=== PATIENT | female | born 1955 | race Caucasian/White ===

== ENCOUNTER 2016-09-24 19:07 | Emergency (ER) | payer OTHER ==
[2016-09-24 19:17] VITALS: TEMP 98.2; O2SAT 97
--- NOTE | 2016-09-24 19:28 | EDPHY ---
H & P Stated Complaint: c/o sob x 4 days after extensive physical activity Time Seen by Provider: 09/24/16 19:19 HPI/ROS: CHIEF COMPLAINT: Dyspnea HISTORY OF PRESENT ILLNESS: The patient is a 61-year-old female with a history only of hemochromatosis not on any medications comes to the emergency department her complaining mild dyspnea for the last 4 days. She states that it starts out mild morning and gradually increases throughout the day and then resolved at night while she is asleep. 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 She denies having any chest pain but does admit to having some chest tightness. She has no history of cardiac or pulmonary disease. No wheezing. No cough fevers or recent illness. Recent travel. No procedures. No hormones. No tobacco. No leg pain or swelling. She has not had a fever. she states that today she also noticed some tingling in her left bicep and her right scalp. REVIEW OF SYSTEMS: Constitutional: denies: chills, fever, recent illness, recent injury EENTM: denies: blurred vision, double vision, nose congestion Respiratory: See HPI Cardiac: denies: chest pain, irregular heart rate, lightheadedness, palpitations Gastrointestinal/Abdominal: denies: abdominal pain, diarrhea, nausea, vomiting, blood streaked stools Genitourinary: denies: dysuria, frequency, hematuria, pain Musculoskeletal: denies: joint pain, muscle pain Skin: denies: lesions, rash, jaundice, bruising Neurological: denies: headache, numbness, paresthesia, tingling, dizziness, weakness Hematologic/Lymphatic: denies: blood clots, easy bleeding, easy bruising Immunologic/allergic: denies: HIV/AIDS, transplant EXAM: GENERAL: Well-appearing, well-nourished and in no acute distress. HEAD: Atraumatic, normocephalic. EYES: Pupils equal round and reactive to light, extraocular movements intact, sclera anicteric, conjunctiva are normal. ENT: TMs normal, nares patent, oropharynx clear without exudates. Moist mucous membranes. NECK: Normal range of motion, supple without lymphadenopathy or JVD. LUNGS: Breath sounds clear to auscultation bilaterally and equal. No wheezes rales or rhonchi. HEART: Regular rate and rhythm without murmurs, rubs or gallops. ABDOMEN: Soft, nontender, normoactive bowel sounds. No guarding, no rebound. No masses appreciated. BACK: No CVA tenderness, no spinal tenderness, step-offs or deformities EXTREMITIES: Normal range of motion, no pitting or edema. No clubbing or cyanosis. NEUROLOGICAL: Cranial nerves II through XII grossly intact. Normal speech, normal gait. 5/5 strength, normal movement in all extremities, normal sensation PSYCH: Normal mood, normal affect. SKIN: Warm, dry, normal turgor, no visible rashes or lesions. Source: Patient Exam Limitations: No limitations - Personal History Tetanus Vaccine Date: 2014 - Medical/Surgical History Hx Asthma: No Hx Chronic Respiratory Disease: No Hx Diabetes: No Hx Cardiac Disease: No Hx Renal Disease: No Hx Cirrhosis: No Hx Alcoholism: No Hx HIV/AIDS: No Hx Splenectomy or Spleen Trauma: No Other PMH: GERD, L4 discectomy, L eye hemorrhage - Family History Significant Family History: No pertinent family hx - Social History Smoking Status: Never smoked Alcohol Use: Sober Drug Use: None Constitutional: Initial Vital Signs Temperature (C) 36.8 C 09/24/16 19:11 Heart Rate 81 09/24/16 19:11 Respiratory Rate 16 09/24/16 19:11 Blood Pressure 176/90 H 09/24/16 19:11 O2 Sat (%) 97 09/24/16 19:11 O2 Delivery Mode Room Air Allergies/Adverse Reactions: No Known Allergies Allergy (Verified 09/24/16 19:14) Home Medications: Medication Instructions Recorded Acetaminophen ['s 1,000 mg PO PRN PRN 04/13/11 Acetaminophen] Ranitidine HCl [Zantac 15 MG/ML 150 mg PO PRN 04/13/11 Oral Liquid (RX)] Medical Decision Making - Diagnostics EKG Interpretation: An EKG obtained and was read and documented in trace view. Please see trace view for full reading and report. Sinus rhythm, no acute ischemic changes Imaging: X-ray: chest x-ray was obtained. I viewed the images myself on the PACS system. My interpretation of the images is: Bronchitis. The radiologist interpretation is bronchitis. ED Course/Re-evaluation: we discussed the patient's x-ray and lab results. She is relieved. I will treat her for viral bronchitis. This does fit with her symptoms. Try giving her a breathing treatment to see if this helps. She states that this felt much better. I will give her a dose of steroids and an inhaler to use symptomatically. She is grateful and declines any further workup or testing at this time. Differential Diagnosis: Partial list of the Differential diagnosis considered include but were not limited to; bronchitis, acute coronary disease, PE and although unlikely based on the history and physical exam, I also considered arrhythmia, pneumothorax, trauma, pneumonia. I discussed these differential diagnoses and the plan with the patient as well as the usual and expected course. The patient understands that the diagnosis is provisional and that in medicine we are not always correct and that further workup is often warranted. Usual and customary warnings were given. All of the patient's questions were answered. The patient was instructed to return to the emergency department should the symptoms at all worsen or return, otherwise to followup with the physician as we discussed. - Data Points Laboratory Results: Laboratory Results 09/24/16 19:34 09/24/16 19:34 Medications Given: Discontinued Medications Albuterol Sulfate (Proventil Inh Prepack) 1 mdi TAKEHOME EDNOW ONE Stop: 09/24/16 20:48 Last Admin: 09/24/16 21:07 Dose: 1 mdi Albuterol/Ipratropium (Duoneb) 3 ml IH EDNOW ONE Stop: 09/24/16 20:21 Last Admin: 09/24/16 20:46 Dose: 3 ml Dexamethasone (Decadron) 10 mg PO EDNOW ONE Stop: 09/24/16 20:48 Last Admin: 09/24/16 21:07 Dose: 10 mg Sodium Chloride (Ns) 1,000 mls @ 0 mls/hr IV ONCE ONE PRN Reason: Wide Open Stop: 09/24/16 19:27 Last Admin: 09/24/16 19:50 Dose: 1,000 mls Departure - Departure Disposition: Home, Routine, Self-Care Clinical Impression: Acute bronchitis Qualifiers: Bronchitis organism: unspecified organism Qualified Code(s): J20.9 - Acute bronchitis, unspecified Condition: Fair Instructions: Albuterol (By breathing), Acute Bronchitis (ED) Referrals: ANDRADE SHAH [Primary Care Provider] - As per Instructions
[2016-09-24 19:37] LABS: % IMMATURE GRANULYOCYTES 0.2 % (0.0-1.1); ABSOLUTE IMMATURE GRANULOCYTES 0.01 10^3/uL (0.00-0.10); ADD DIFF? NO; ADD MORPH? NO; ADD SCAN? NO; ATYPICAL LYMPHOCYTE FLAG 10 (0-99); FRAGMENT RBC FLAG 0 (0-99); HEMATOCRIT 42.6 % (38.0-47.0); LEFT SHIFT FLG 0 (0-99); LIPEMIA HEMOLYSIS FLAG 90 (0-99); MEAN CELL HEMOGLOBIN 31.6 pg (27.9-34.1); MEAN CELL HEMOGLOBIN CONCENTR. 35.2 g/dL (32.4-36.7); MEAN CELL VOLUME 89.9 fL (81.5-99.8); MEAN PLATELET VOLUME 10.7 fL (8.7-11.7); PLATELET CLUMPS FLAG 0 (0-99); PLATELET COUNT 216 10^3/uL (150-400); RED BLOOD CELL COUNT 4.74 10^6/uL (4.18-5.33); RED CELL DISTRIBUTION WIDTH 13.1 % (11.5-15.2)
--- NOTE | 2016-09-24 19:40 | CPEKG ---
Heart Rate: 61 RR Interval: 984 P-R Interval: 148 QRSD Interval: 86 QT Interval: 424 QTC Interval: 427 P [place]: 74 QRS [place]: 49 T Wave [place]: 20 EKG Severity - NORMAL ECG - EKG Impression: SINUS RHYTHM Electronically Signed By: Ben Beverly 24-Sep-2016 19:54:36
[2016-09-24] MEDS: NS 1,000 ML IV ONE (19:50)
[2016-09-24 20:02] LABS: TROPONIN I < 0.012 ng/mL (0-0.034)
[2016-09-24 20:09] LABS: ANION GAP 15 mEq/L (8-16); CALCIUM 10.3 mg/dL (8.5-10.4); CARBON DIOXIDE 19 mEq/l (22-31); CHLORIDE 107 mEq/L (97-110); CREATININE 0.8 mg/dL (0.6-1.0); GLOMERULAR FILTRATION RATE > 60; GLUCOSE 106 mg/dL (70-100); POTASSIUM 4.1 mEq/L (3.5-5.2); SODIUM 141 mEq/L (134-144)
[2016-09-24] MEDS ORDERED: IPRATROPIUM/ALBUTEROL 3 ML DEYVIAL ONE (20:20)
[2016-09-24] MEDS: IPRATROPIUM/ALBUTEROL 3 ML DEYVIAL IH ONE (20:46)
[2016-09-24] MEDS: DEXAMETHASONE 4 MG TAB PO ONE (21:07)
[2016-09-24] MEDS: ALBUTEROL INH PREPACK MDI TAKEHOME ONE (21:07)
[2016-09-24 21:10] VITALS: BP 132/79; PULSE 69; RESP 20
== END 2016-09-24 21:10 | disposition home or self-care (01) ==
DX: J20.9 Acute bronchitis, unspecified (principal)

== ENCOUNTER → 2017-05-10 | Outpatient (CLI) | payer OTHER | LOC: FIMAGING 08:52 | PROVIDERS: ATTEND Family Medicine | DX: Z12.31 Encounter for screening mammogram for malignant neoplasm of breast (principal) | CPT/HCPCS: G0202 ==

== ENCOUNTER 2018-04-10 07:40 | Day surgery (SDC) | payer OTHER ==
[2018-04-10] MEDS ORDERED: NS 1,000 ML IV SCH (07:42)
[2018-04-10] MEDS ORDERED: DIAZEPAM 5 MG TAB PO ONE (07:42)
--- NOTE | 2018-04-10 07:51 | PDHPUP ---
History & Physical Update H&P update statement: This history and physical update is based on an assessment of the patient which was completed after admission or registration (within 24 hours), but prior to the surgery/procedure. H&P update: H&P reviewed & patient examined, no change in patient's condition since H&P completed
[2018-04-10] MEDS ORDERED: MIDAZOLAM 2 MG/2 ML VIAL ONE (08:00)
[2018-04-10] MEDS ORDERED: fentaNYL 100 MCG/2 ML INJ ONE (08:00)
[2018-04-10] MEDS ORDERED: LIDOCAINE 1% 300 MG/30 ML SDV ONE (08:00)
[2018-04-10 08:20] LABS: PLATELET COUNT 228 10^3/uL (150-400)
--- NOTE | 2018-04-10 08:36 | PDPROPOC ---
Sedation Plan of Care Sedation Plan of Care: vital signs stable, mental status noted, patient educated of risks, benefits, alternatives, patient can tolerate sedation ASA Classification: ASA 1 Planned drugs: fentanyl, midazolam Mallampati Reference Image: Patient passed 3-3-2 rule?: Yes
[2018-04-10 08:38] LABS: INR 1.09 (0.83-1.16); PROTIME(PATIENT) 14.3 SEC (12.0-15.0)
--- NOTE | 2018-04-10 09:14 | PDDXCAT ---
Diagnostic Cath Note - . Date: 04/10/18 Test Eng: Other (aldair regalado) Indication: other (short of breath, suggestion of moderate pulmonary HTN on limited echo) - Procedure Procedure: right heart catheterization, other (via right internal jugular vein.) - Materials Right Heart Cath size: 7F Right Heart Cath materials: PWP catheter - Findings-Right Heart Catheterization RA: 5 RV: 34/2 PA: 36/1 (mean 19) PAOP: 8 AO: 99/70 CO: 6.8 CI: 3.9 Complications: none Estimated blood loss: <50ml Closure method: manual pressure Assessment: normal PA pressures. Plan: reassurance, Shortness of breath does not appear to be cardiac related. F/u PCP. Patient Problems: Problems Problem Status Onset Acute bronchitis Acute Appendicitis Acute
[2018-04-10] MEDS ORDERED: OXYCODONE/APAP 5/325 TAB PO PRN (09:15)
[2018-04-10] MEDS ORDERED: NITROGLYCERIN 0.4 MG BTL SL PRN (09:15)
[2018-04-10] MEDS ORDERED: ATROPINE SULFATE 1 MG/10 ML SYR IVP PRN (09:15)
[2018-04-10] MEDS ORDERED: ONDANSETRON 4 MG/2 ML VIAL IVP PRN (09:15)
[2018-04-10] MEDS ORDERED: HYDROCODONE/APAP 5/325 TAB PO PRN (09:15)
--- NOTE | 2018-04-10 09:47 | CPIP ---
DATE OF PROCEDURE: 04/10/2018 PROCEDURE PERFORMED: Right heart catheterization via the right internal jugular vein with monitoring Weston-Coy catheter hemodynamics. INDICATIONS: Shortness of breath and abnormal echo suggesting moderate pulmonary hypertension. CONSENT: Risks, benefits, and alternatives discussed with patient and her . They wished to p roceed. MEDICATIONS USED: Versed 2 mg IV and fentanyl 50 mcg IV with continuous pulse oximetry and hemodynam ic monitoring. TECHNICAL DIFFICULTIES: None. 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 A Weston-Coy catheter was advanced to the right heart chambers using a support guidewire into the right pulmonary artery. Hemodynamic assessment was done. At the end of the case, the wire and Weston-Coy catheter and sheath were removed and manual hemostasis was done over the right neck. The p atient tolerated the procedure well. HEMODYNAMICS: The mean RA was 5, RV 34/2, PA 36/1 with a mean pulmonary artery pressure of 19. The mean pulmonary capillary wedge pressure was 8. The cardiac output and cardiac index were 6.8 and 3.9 L/minute, respectively. The arterial blood pressure was 99/70. The estimated arterial saturation o n room air was 90% and measured pulmonary artery saturation 78.4%. COMPLICATIONS: None. In particular, fluoroscopy at the end of the case demonstrated no evidence of apical pneumothoraces or change in cardiac silhouette size. IMPRESSIONS: 1. Normal pulmonary arterial pressures. 2. Low normal pulmonary capsular wedge pressure consistent with slightly dehydrated state. /[id number]/MODL
--- NOTE | 2018-04-11 12:09 | CPEKG ---
Test Reason : OPEN Blood Pressure : / mmHG Vent. Rate : 044 BPM Atrial Rate : 044 BPM P-R Int : 138 ms QRS Dur : 100 ms QT Int : 582 ms P-R-T Axes : 073 021 013 degrees QTc Int : 498 ms Sinus bradycardia Borderline T abnormalities, anterior leads Borderline prolonged QT interval Slower heart rate in comparison to prior ECG Confirmed by Rcihard Randle ([id number]) on 04/11/2018 12:09:23 PM Referred By: Confirmed By:Richard Randle
== END 2018-04-10 11:20 | disposition home or self-care (01) ==
LOC: FCATH 07:40
PROVIDERS: ATTEND Internal Medicine Cardiovascular Disease
PROC: 4A023N6 Measurement of Cardiac Sampling and Pressure, Right Heart, Percutaneous Approach (ICD-10-PCS; principal; 2018-04-10)
DX: R06.02 Shortness of breath (principal); R07.9 Chest pain, unspecified; E83.119 Hemochromatosis, unspecified; Z78.0 Asymptomatic menopausal state; Z82.49 Family history of ischemic heart disease and other diseases of the circulatory system
CPT/HCPCS: J1644; J2250; J3010

== ENCOUNTER → 2018-06-05 | Outpatient (CLI) | payer OTHER | LOC: FIMAGING 09:05 | PROVIDERS: ATTEND Internal Medicine | DX: Z12.31 Encounter for screening mammogram for malignant neoplasm of breast (principal); Z80.3 Family history of malignant neoplasm of breast ==